=== PATIENT | male | born 1945 | race Caucasian/White ===

== ENCOUNTER 2016-02-10 16:09 | Inpatient (IN) | payer MEDICARE, OTHER ==
[~2016-02-10] VITALS: Ht 172.7 cm; Wt 94.5 kg
[~2016-02-10 16:09] MED LIST: ADDERALL20 MG PO; ALLEGRA 180MG180 MG PO; ALLEGRA ALLERG180 MG PO; ANTIVERT 25MG25 MG PO; APRESOLINE 25MG25 MG PO; APRESOLINE50 MG PO; ASPI325T6 PO; ASPIRIN 32325 MG/TAB PO; ASPIRIN E.C. 8181 MG PO; ATACAND PO; ATENOLOL100 MG PO; ATIVAN 0.50.5 MG/TAB PO; BETAPACE 120MG120 MG PO; BYETTA 10M600 MCG/SY SC; BYETTA 5MC300 MCG/SY SC; BYETTA SC; BYSTOLIC5 MG PO; CARDIZEM CD360 MG PO; CARDURA 2MG2 MG PO; CARDURA4 MG PO; CELEBREX 200MG200 MG PO; CELEBREX50 MG PO; CEPHALEXIN500 M1 PO; CLOPIDOGREL PO; CORDARONE200 MG/TAB PO; COZAAR100 MG PO; CRESTOR20 MG PO; CYMBALTA 30MG30 MG PO; CYMBALTA 60MG60 MG PO; DILTIAZEM PO; DOXYCYCLINE HY100 MG PO; ECOTRIN325 MG PO; FISH OIL CONC1000 MG PO; FLEXERIL 1010 MG/TAB PO; FLONASE NASAL S16 GM NS; FOLIC ACID 11 MG/TA1 PO; FORTAMET500 MG PO; GLUCOPHAGE XR500 M1 PO; GLUCOPHAGE500 MG/TAB PO; GLUCOTROL XL10 MG PO; GLUCOTROL10 MG PO; IMDUR 60MG60 MG/TAB PO; INSPRA; INSPRA PO; INSPRA50 MG; INSPRA50 MG PO; LANTUS100 U/ML SC; LASIX 40MG TABL40 MG PO; LASIX 40MG40 MG/4 ML PO; LOPRESSOR 225 MG/TAB PO; LORTAB 5/500 501 TAB PO; METFORMIN ER500 MG PO; MICARDIS HCT 121 TA1 PO; MULTIPLE VITAMI1 CAP PO; NEXIUM 40MG40 MG PO; NITRO-DUR0.4 MG/PAT TD; NITROSTAT0.4 MG/TAB SL; NORCO 325 MG-7.1 TAB PO; ONGLYZA5 MG PO; PERCOCET 325 MG1 TA2 PO; PLAVIX 75MG TAB75 MG PO; PRALUENT S75 MG/1 ML SQ; PREDNISONE20 MG PO; PREVACID 15MG15 M1 PO; PREVACID 30MG30 M1 PO; PREVACID 30MG30 MG PO; PREVACID SOLUTA30 M2 PO; PRILOSEC 20MG20 MG PO; PROTONIX20 MG PO; PURINETHOL 50MG50 MG PO; SENNA-LAX8.6 MG PO; SENNA8.6 MG PO; SOTALOL PO; ST. JOSEPH81 M2 PO; TAZTIA XT360 MG PO; TIAZAC300 MG PO; TIAZAC420 MG PO; Testosterone IM; VALIUM 2MG T2 MG/TAB PO; VITAMIN B1250 MCG PO; WELLBUTRIN XL150 MG PO; XARELTO10 MG PO; ZEBETA10 MG PO; ZETIA 10MG TAB10 MG PO; ZETIA10 MG PO; ZOCOR 10MG10 MG PO; ZOFRAN 4MG T4 MG/TAB PO; ZYBAN150 M1; [UNRECOGNIZED DRUG - CODE]; [UNRECOGNIZED DRUG - OTHER] PO; [UNRECOGNIZED DRUG - REMARK]
[2016-02-10 18:14] LABS: PH 6 (5-8); SQUAMOUS EPITHELIAL None Seen /hpf; URINE APPEARANCE Cloudy; URINE BACTERIA None Seen /hpf; URINE BILIRUBIN Negative (NEGATIVE); URINE BLOOD 3+ (NEGATIVE); URINE COLOR Red; URINE GLUCOSE 3+ (NEGATIVE); URINE KETONE Trace (NEGATIVE); URINE RBC >50 /hpf; URINE UROBILINOGEN Negative (NEGATIVE); URINE WBC None Seen /hpf
[2016-02-10 18:53] LABS: BASO # 0.1 (0.0-0.2); BASO % 0.6 % (0.0-2.0); EOS # 0.3 (0.0-0.7); EOS % 3.3 % (0-4.0); GRAN # 5.2 (1.4-6.5); HEMATOCRIT 39.3 % (42.0-52.0); HEMOGLOBIN 13.3 g/dl (13.5-18.0); LYMPH % 24.7 % (20.0-51.0); MEAN CELL VOLUME 94 fl (80.0-100.0); MEAN CORPUSCULAR HEMOGLOBIN 32 pg (27.0-31.0); MEAN CORPUSCULAR HGB CONC 34 g/dl (33.0-37.0); MEAN PLATELET VOLUME 10.6 fl (7.4-10.4); MONO # 0.7 (0.1-0.6); MONO % 7.9 % (1.7-9.3); PLATELET COUNT 221 K/mm3 (130-400); RED BLOOD COUNT 4.18 M/mm3 (4.20-5.60); REDCELL DISTRIBUTION WIDTH-CV 13.6 % (11.5-14.5); WHITE BLOOD COUNT 8.2 K/mm3 (4.8-10.8)
[2016-02-10 19:18] LABS: ADJUSTED CALCIUM 9.8 mg/dL (8.4-10.2); ALBUMIN 3.8 gm/dL (3.5-5.0); BILIRUBIN,TOTAL 0.6 mg/dL (0.0-1.0); CALCIUM 9.6 mg/dL (8.4-10.2); CREATININE, serum 0.83 mg/dL (0.66-1.25); POTASSIUM 3.6 mmol/L (3.4-5.0); TOTAL PROTEIN 7.1 gm/dL (6.4-8.2)
[2016-02-10 20:38] VITALS: BP 190/117; PULSE 103; TEMP 98
[2016-02-11] VITALS (13 sets, daily range): BP systolic 109–179; BP diastolic 41–107; PULSE 69–91; TEMP 97–98.3
[2016-02-11 12:24] LABS: BASO % 0.3 % (0.0-2.0); EOS % 0.5 % (0-4.0); GRAN % 80.7 % (42.2-75.2); LYMPH # 1.2 (1.2-3.4); LYMPH % 13.5 % (20.0-51.0); MEAN CELL VOLUME 96 fl (80.0-100.0); MEAN CORPUSCULAR HGB CONC 33 g/dl (33.0-37.0); MEAN PLATELET VOLUME 10.6 fl (7.4-10.4); MONO # 0.4 (0.1-0.6); MONO % 4.2 % (1.7-9.3); PLATELET COUNT 159 K/mm3 (130-400); RED BLOOD COUNT 2.38 M/mm3 (4.20-5.60); REDCELL DISTRIBUTION WIDTH-CV 13.9 % (11.5-14.5); WHITE BLOOD COUNT 8.6 K/mm3 (4.8-10.8)
[2016-02-11 12:25] LABS: HEMATOCRIT 22.9 % (42.0-52.0); HEMOGLOBIN 7.6 g/dl (13.5-18.0); MEAN CORPUSCULAR HEMOGLOBIN 32 pg (27.0-31.0)
[2016-02-11 12:33] LABS: CALCIUM 6.1 mg/dL (8.4-10.2); CREATININE, serum 0.75 mg/dL (0.66-1.25)
[2016-02-11 12:37] LABS: POTASSIUM 2.5 mmol/L (3.4-5.0)
[2016-02-11 13:25] LABS: HEMOGLOBIN 9.9 g/dl (13.5-18.0)
[2016-02-12 00:14] VITALS: BP 121/49; PULSE 68; TEMP 98.3
[2016-02-12 04:34] VITALS: BP 138/74; PULSE 67; TEMP 97.7
[2016-02-12 07:10] LABS: INR 1.1 (0.8-3.0); PROTHROMBIN TIME 12.3 SECONDS (9.7-12.8)
[2016-02-12 07:13] LABS: MEAN CELL VOLUME 96 fl (80.0-100.0); MEAN CORPUSCULAR HGB CONC 33 g/dl (33.0-37.0); MEAN PLATELET VOLUME 11.2 fl (7.4-10.4); PLATELET COUNT 206 K/mm3 (130-400); REDCELL DISTRIBUTION WIDTH-CV 13.9 % (11.5-14.5); WHITE BLOOD COUNT 12.9 K/mm3 (4.8-10.8)
[2016-02-12 07:15] LABS: HEMOGLOBIN 8.8 g/dl (13.5-18.0); MEAN CORPUSCULAR HEMOGLOBIN 31 pg (27.0-31.0)
[2016-02-12 09:21] VITALS: BP 148/68; PULSE 78; TEMP 97.3
[2016-02-12 13:13] VITALS: BP 126/50; PULSE 73; TEMP 98.9
[2016-02-12 17:16] VITALS: BP 124/56; PULSE 68; TEMP 98.1
[2016-02-12 22:16] VITALS: BP 131/61; PULSE 76; TEMP 98.2
[2016-02-13] VITALS (9 sets, daily range): BP systolic 126–170; BP diastolic 53–78; PULSE 60–87; TEMP 97.2–98.9
[2016-02-13 06:42] LABS: MEAN CELL VOLUME 95 fl (80.0-100.0); MEAN CORPUSCULAR HGB CONC 33 g/dl (33.0-37.0); MEAN PLATELET VOLUME 10.9 fl (7.4-10.4); PLATELET COUNT 186 K/mm3 (130-400); RED BLOOD COUNT 2.51 M/mm3 (4.20-5.60); REDCELL DISTRIBUTION WIDTH-CV 13.7 % (11.5-14.5); WHITE BLOOD COUNT 9.7 K/mm3 (4.8-10.8)
[2016-02-13 06:44] LABS: HEMATOCRIT 23.8 % (42.0-52.0); HEMOGLOBIN 7.8 g/dl (13.5-18.0); MEAN CORPUSCULAR HEMOGLOBIN 31 pg (27.0-31.0)
[2016-02-13 07:00] LABS: CALCIUM 8.5 mg/dL (8.4-10.2); CREATININE, serum 0.83 mg/dL (0.66-1.25); POTASSIUM 3.2 mmol/L (3.4-5.0)
[2016-02-14 02:52] VITALS: BP 154/91; PULSE 86; TEMP 98.6
[2016-02-14 04:44] VITALS: BP 167/58; PULSE 64; TEMP 97.2
[2016-02-14 07:56] LABS: MEAN CELL VOLUME 95 fl (80.0-100.0); MEAN CORPUSCULAR HGB CONC 33 g/dl (33.0-37.0); MEAN PLATELET VOLUME 11.2 fl (7.4-10.4); PLATELET COUNT 218 K/mm3 (130-400); REDCELL DISTRIBUTION WIDTH-CV 13.8 % (11.5-14.5)
[2016-02-14 08:01] LABS: HEMATOCRIT 27.6 % (42.0-52.0); HEMOGLOBIN 9.1 g/dl (13.5-18.0); MEAN CORPUSCULAR HEMOGLOBIN 31 pg (27.0-31.0)
[2016-02-14 10:39] VITALS: BP 150/69; PULSE 63; TEMP 98.4
[2016-02-14 14:53] VITALS: BP 146/84; PULSE 85; TEMP 98.3
== END 2016-02-14 15:20 | DRG 663 ==
LOC: COL.ER 16:09 → SURG 19:13
PROVIDERS: Nurse Practitioner; Urology
PROC: 0W3R8ZZ Control Bleeding in Genitourinary Tract, Via Natural or Artificial Opening Endoscopic (ICD-10-PCS; 2016-02-11)
PROC: 0T9B80Z Drainage of Bladder with Drainage Device, Via Natural or Artificial Opening Endoscopic (ICD-10-PCS; 2016-02-11)
PROC: 0TCB8ZZ Extirpation of Matter from Bladder, Via Natural or Artificial Opening Endoscopic (ICD-10-PCS; principal; 2016-02-11 09:30)
DX: N32.89 Other specified disorders of bladder (principal); F05 Delirium due to known physiological condition; D62 Acute posthemorrhagic anemia; R31.0 Gross hematuria; I10 Essential (primary) hypertension; I25.10 Atherosclerotic heart disease of native coronary artery without angina pectoris; Z95.5 Presence of coronary angioplasty implant and graft; I48.91 Unspecified atrial fibrillation; E11.9 Type 2 diabetes mellitus without complications; Z95.0 Presence of cardiac pacemaker; Z79.01 Long term (current) use of anticoagulants; E87.6 Hypokalemia
CPT/HCPCS: J0690; J1100; J1815; J2310; J2405; J2704; J3010; J7030; P9016

== ENCOUNTER → 2016-02-21 | Outpatient (REF) ==
[~2016-02-21] MED LIST changes: +ASPIRIN 81M81 MG/TA2 PO; +DUO-KAPS1 CAP PO; +EXELON PAT4.6 MG/24 TD; +FERRO-TIME325 MG PO; +LASIX 20MG TABL20 MG PO; +MUCINEX 60600 MG/TA1 PO; +NAMENDA 10MG TA10 MG PO; +NAMENDA5 MG PO; +NOVOLOG FLEX100 U/ML SQ; +PRALUENT P75 MG/1 ML SQ; +PRAVACHOL 20MG20 MG PO; +Remove Patch TD; +THIAMINE 1100 MG/TAB PO
[2016-02-21 09:21] LABS: HIV 1/2 Antibodies Non-Reactive; HIV-1p24 Antigen Non-Reactive
== END ==
LOC: ZLAB.STJ 08:50
PROVIDERS: Family Medicine
DX: Z01.89 Encounter for other specified special examinations (principal)

== ENCOUNTER 2016-04-16 14:30 | Observation (INO) | payer MEDICARE, OTHER ==
[~2016-04-16] VITALS: Ht 175.3 cm; Wt 98.5 kg
[~2016-04-16 14:30] MED LIST changes: -ASPIRIN 81M81 MG/TA2 PO; -DUO-KAPS1 CAP PO; -EXELON PAT4.6 MG/24 TD; -FERRO-TIME325 MG PO; -LASIX 20MG TABL20 MG PO; -MUCINEX 60600 MG/TA1 PO; -NAMENDA 10MG TA10 MG PO; -NAMENDA5 MG PO; -NOVOLOG FLEX100 U/ML SQ; -PRALUENT P75 MG/1 ML SQ; -PRAVACHOL 20MG20 MG PO; -Remove Patch TD; -THIAMINE 1100 MG/TAB PO
[2016-04-16 15:23] LABS: BASO # 0.1 (0.0-0.2); BASO % 0.6 % (0.0-2.0); EOS # 0.1 (0.0-0.7); EOS % 1.2 % (0-4.0); GRAN # 4.6 (1.4-6.5); GRAN % 59.1 % (42.2-75.2); HEMATOCRIT 40.3 % (42.0-52.0); HEMOGLOBIN 12.7 g/dl (13.5-18.0); LYMPH # 2.2 (1.2-3.4); LYMPH % 28.2 % (20.0-51.0); MEAN CELL VOLUME 87 fl (80.0-100.0); MEAN CORPUSCULAR HEMOGLOBIN 27 pg (27.0-31.0); MEAN CORPUSCULAR HGB CONC 32 g/dl (33.0-37.0); MEAN PLATELET VOLUME 10.4 fl (7.4-10.4); MONO # 0.8 (0.1-0.6); MONO % 10.5 % (1.7-9.3); PLATELET COUNT 306 K/mm3 (130-400); RED BLOOD COUNT 4.64 M/mm3 (4.20-5.60); REDCELL DISTRIBUTION WIDTH-CV 21.1 % (11.5-14.5); WHITE BLOOD COUNT 7.7 K/mm3 (4.8-10.8)
[2016-04-16 15:27] LABS: INR 1.1 (0.8-3.0); PROTHROMBIN TIME 12.5 SECONDS (9.7-12.8)
[2016-04-16 15:46] LABS: ADJUSTED CALCIUM 9.5 mg/dL (8.4-10.2); ALANINE AMINOTRANSFERASE 22 U/L (21-72); ALKALINE PHOSPHATASE 101 U/L (50-136); ANION GAP 15 mmol/L (7-16); BILIRUBIN,TOTAL 0.7 mg/dL (0.0-1.0); BLOOD UREA NITROGEN 15 mg/dL (9-20); CALCIUM 9.5 mg/dL (8.4-10.2); CARBON DIOXIDE 24 mmol/L (22-30); CHLORIDE 100 mmol/L (98-107); CREATININE, serum 1.17 mg/dL (0.66-1.25); GLUCOSE 192 mg/dL (74-106); POTASSIUM 4.1 mmol/L (3.4-5.0); SODIUM 139 mmol/L (137-145); TOTAL PROTEIN 7.1 gm/dL (6.4-8.2)
[2016-04-16 15:47] LABS: ACETAMINOPHEN < 10 ug/mL (10-30); SALICYLATE < 1.0 mg/dL
[2016-04-16] MEDS ORDERED: ZEBETA10 MG PO (16:51)
[2016-04-16] MEDS ORDERED: NOVOLOG FLEX100 U/ML SQ (16:58)
[2016-04-16] MEDS ORDERED: INSPRA50 MG PO (16:59)
[2016-04-16] MEDS ORDERED: NITRO-DUR0.4 MG/PAT TD (17:00)
[2016-04-16] MEDS ORDERED: PRALUENT P75 MG/1 ML SQ (17:01)
[2016-04-16] MEDS ORDERED: ALLEGRA 180MG180 MG PO (17:03)
[2016-04-16] MEDS ORDERED: PLAVIX 75MG TAB75 MG PO (17:06)
[2016-04-16] MEDS ORDERED: ASPIRIN 81M81 MG/TA2 PO (17:06)
[2016-04-16] MEDS ORDERED: FERRO-TIME325 MG PO (17:07)
[2016-04-16] MEDS ORDERED: FLONASE NASAL S16 GM NS (17:08)
[2016-04-16] MEDS ORDERED: MUCINEX 60600 MG/TA1 PO (17:08)
[2016-04-16 18:06] VITALS: BP 119/62; PULSE 63; TEMP 97.5
[2016-04-17 01:23] VITALS: BP 148/92; PULSE 67; TEMP 98
[2016-04-17 05:13] VITALS: BP 179/80; PULSE 84; TEMP 98.6
[2016-04-17 07:56] VITALS: BP 191/67; PULSE 54; TEMP 98.4
[2016-04-17 16:12] VITALS: BP 145/86; PULSE 70; TEMP 98.2
[2016-04-17 19:28] VITALS: BP 163/98; PULSE 73; TEMP 98.4
[2016-04-17 23:34] VITALS: BP 168/92; PULSE 73; TEMP 98.3
[2016-04-18 03:09] VITALS: BP 153/76; PULSE 72; TEMP 98.5
[2016-04-18 07:51] VITALS: BP 149/82; PULSE 69; TEMP 98.3
[2016-04-18 11:21] VITALS: BP 131/74; PULSE 74; TEMP 97.6
[2016-04-18] MEDS ORDERED: EXELON PAT4.6 MG/24 TD (11:28)
[2016-04-18] MEDS ORDERED: LASIX 20MG TABL20 MG PO (11:30)
[2016-04-18] MEDS ORDERED: DUO-KAPS1 CAP PO (11:31)
[2016-04-18] MEDS ORDERED: THIAMINE 1100 MG/TAB PO (11:31)
[2016-04-18] MEDS ORDERED: Remove Patch TD (11:32)
[2016-04-18] MEDS ORDERED: NAMENDA 10MG TA10 MG PO ×2 (11:38)
[2016-04-18] MEDS ORDERED: NAMENDA5 MG PO ×2 (11:38)
[2016-04-18] MEDS ORDERED: PRAVACHOL 20MG20 MG PO (12:18)
[2016-04-18 14:10] VITALS: BP 131/74; PULSE 74; TEMP 97.6
== END 2016-04-18 15:00 | disposition home or self-care (01) ==
LOC: COL.ER 14:30 → MEDICAL 17:11
PROVIDERS: Emergency Medicine; Family Medicine
DX: F03.90 Unspecified dementia, unspecified severity, without behavioral disturbance, psychotic disturbance, mood disturbance, and anxiety (principal); I25.10 Atherosclerotic heart disease of native coronary artery without angina pectoris; I11.0 Hypertensive heart disease with heart failure; I50.9 Heart failure, unspecified; E11.9 Type 2 diabetes mellitus without complications; K21.9 Gastro-esophageal reflux disease without esophagitis; M19.90 Unspecified osteoarthritis, unspecified site; K27.9 Peptic ulcer, site unspecified, unspecified as acute or chronic, without hemorrhage or perforation; E78.5 Hyperlipidemia, unspecified; G90.3 Multi-system degeneration of the autonomic nervous system; Z79.4 Long term (current) use of insulin; Z95.5 Presence of coronary angioplasty implant and graft; Z95.0 Presence of cardiac pacemaker; Z79.899 Other long term (current) drug therapy; Z79.84 Long term (current) use of oral hypoglycemic drugs; Z79.82 Long term (current) use of aspirin; Z79.02 Long term (current) use of antithrombotics/antiplatelets; Z91.81 History of falling; I25.2 Old myocardial infarction; Z87.891 Personal history of nicotine dependence; Z86.79 Personal history of other diseases of the circulatory system
CPT/HCPCS: G0378; G8987-GO; G8988-GO; J1650; J1815; J2060

== ENCOUNTER 2016-07-08 16:38 | Emergency (ER) | payer MEDICARE, OTHER ==
[~2016-07-08] VITALS: Ht 175.3 cm; Wt 72.7 kg
[~2016-07-08 16:38] MED LIST changes: +ASPIRIN 81M81 MG/TA2 PO; +DUO-KAPS1 CAP PO; +EXELON PAT4.6 MG/24 TD; +FERRO-TIME325 MG PO; +LASIX 20MG TABL20 MG PO; +MUCINEX 60600 MG/TA1 PO; +NAMENDA 10MG TA10 MG PO; +NAMENDA5 MG PO; +NOVOLOG FLEX100 U/ML SQ; +PRALUENT P75 MG/1 ML SQ; +PRAVACHOL 20MG20 MG PO; +Remove Patch TD; +THIAMINE 1100 MG/TAB PO
[2016-07-08 16:45] VITALS: TEMP 97.7
[2016-07-08 18:37] VITALS: BP 156/87; PULSE 65
== END 2016-07-08 18:41 | disposition home or self-care (01) ==
LOC: COL.ER 16:38
DX: I11.0 Hypertensive heart disease with heart failure (principal); R04.0 Epistaxis; I50.9 Heart failure, unspecified; I25.10 Atherosclerotic heart disease of native coronary artery without angina pectoris; I25.2 Old myocardial infarction; E11.9 Type 2 diabetes mellitus without complications; K21.9 Gastro-esophageal reflux disease without esophagitis; M19.90 Unspecified osteoarthritis, unspecified site; Z87.891 Personal history of nicotine dependence; Z79.4 Long term (current) use of insulin; Z79.84 Long term (current) use of oral hypoglycemic drugs; Z79.82 Long term (current) use of aspirin; Z79.01 Long term (current) use of anticoagulants; Z85.828 Personal history of other malignant neoplasm of skin; Z95.0 Presence of cardiac pacemaker; Z95.5 Presence of coronary angioplasty implant and graft; Z98.890 Other specified postprocedural states

== ENCOUNTER → 2017-04-17 | Outpatient (CLI) | payer MEDICARE, OTHER ==
[~2017-04-17] MED LIST changes: +ACULAR 3 ML3 ML OS; +ARICEPT10 MG PO; +BYETTA 10M600 MCG/SY SQ; +CATAPRES 0.1MG0.1 MG PO; +CATAPRES0.3 MG PO; +OCUFLOX OPHTH DR5 ML OD
[2017-04-17 18:23] LABS: COLLECTION METHOD CLEAN CATCH
[2017-04-17 19:01] LABS: PH 6 (5-8); SQUAMOUS EPITHELIAL None Seen /hpf; URINE APPEARANCE Clear; URINE BACTERIA None Seen /hpf; URINE BILIRUBIN Negative (NEGATIVE); URINE BLOOD Negative (NEGATIVE); URINE COLOR Yellow; URINE GLUCOSE Negative (NEGATIVE); URINE KETONE Negative (NEGATIVE); URINE LEUKOCYTE ESTERASE Negative (NEGATIVE); URINE NITRATE Negative (NEGATIVE); URINE PROTEIN(semi-quant) Negative (NEGATIVE); URINE RBC 0-2 /hpf; URINE UROBILINOGEN Negative (NEGATIVE); URINE WBC 0-2 /hpf
== END ==
LOC: ZCOL.LAB 17:23
PROVIDERS: Family Medicine
DX: Z01.89 Encounter for other specified special examinations (principal)

== ENCOUNTER → 2017-05-15 | Outpatient (CLI) | payer MEDICARE, OTHER ==
[~2017-05-15] MED LIST changes: +DIOVAN320 MG PO; +ISOSORBIDE MON120 MG PO; +MINOXIDIL 10 PO; +NORVASC 10MG10 MG PO; +NOVOLOG 100U100 U/M1 SQ
== END ==
LOC: ZCOL.LAB 12:14
DX: Z01.89 Encounter for other specified special examinations (principal)

== ENCOUNTER → 2017-05-29 | Outpatient (CLI) | payer MEDICARE, OTHER ==
[2017-05-29 12:13] LABS: CREATININE, serum 1.09 mg/dL (0.66-1.25); POTASSIUM 3.8 mmol/L (3.4-5.0)
== END ==
LOC: ZCOL.LAB 11:48
PROVIDERS: Internal Medicine Cardiovascular Disease
DX: I50.32 Chronic diastolic (congestive) heart failure (principal)

== ENCOUNTER 2017-06-16 09:22 | Emergency (ER) | payer MEDICARE, OTHER ==
[2017-06-16 09:33] VITALS: TEMP 98.3
[2017-06-16 10:12] LABS: BASO # 0.1 (0.0-0.2); BASO % 0.6 % (0.0-2.0); EOS # 0.1 (0.0-0.7); EOS % 0.9 % (0-4.0); GRAN # 5.8 (1.4-6.5); GRAN % 66.9 % (42.2-75.2); HEMATOCRIT 46.1 % (42.0-52.0); HEMOGLOBIN 15.7 g/dl (13.5-18.0); LYMPH % 23.3 % (20.0-51.0); MEAN CELL VOLUME 90 fl (80.0-100.0); MEAN CORPUSCULAR HEMOGLOBIN 31 pg (27.0-31.0); MEAN CORPUSCULAR HGB CONC 34 g/dl (33.0-37.0); MEAN PLATELET VOLUME 9.6 fl (7.4-10.4); MONO # 0.7 (0.1-0.6); PLATELET COUNT 282 K/mm3 (130-400); RED BLOOD COUNT 5.11 M/mm3 (4.20-5.60); REDCELL DISTRIBUTION WIDTH-CV 14.3 % (11.5-14.5)
[2017-06-16 10:22] LABS: ALANINE AMINOTRANSFERASE 29 U/L (21-72); ALBUMIN 4.4 gm/dL (3.5-5.0); ALKALINE PHOSPHATASE 106 U/L (50-136); ANION GAP 14 mmol/L (7-16); AST,SGOT 23 U/L (15-37); BILIRUBIN,TOTAL 0.6 mg/dL (0.0-1.0); BLOOD UREA NITROGEN 13 mg/dL (9-20); C-REACTIVE PROTEIN 0.8 mg/dL (0.0-0.9); CALCIUM 10.1 mg/dL (8.4-10.2); CARBON DIOXIDE 31 mmol/L (22-30); CHLORIDE 101 mmol/L (98-107); CREATININE, serum 1.11 mg/dL (0.66-1.25); GLUCOSE 115 mg/dL (74-106); LIPASE 166 U/L (23-300); SODIUM 146 mmol/L (137-145); TOTAL PROTEIN 8.6 gm/dL (6.4-8.2)
[2017-06-16 10:32] LABS: TROPONIN-I < 0.012 ng/mL (0.000-0.034)
[2017-06-16 11:31] LABS: COLLECTION METHOD CLEAN CATCH
[2017-06-16 11:36] LABS: MUCOUS Present /lpf; PH 5 (5-8); SQUAMOUS EPITHELIAL None Seen /hpf; URINE APPEARANCE Clear; URINE BACTERIA None Seen /hpf; URINE BILIRUBIN Negative (NEGATIVE); URINE BLOOD Negative (NEGATIVE); URINE COLOR Yellow; URINE GLUCOSE Negative (NEGATIVE); URINE KETONE Negative (NEGATIVE); URINE LEUKOCYTE ESTERASE Negative (NEGATIVE); URINE NITRATE Negative (NEGATIVE); URINE PROTEIN(semi-quant) Negative (NEGATIVE); URINE RBC 0-2 /hpf; URINE UROBILINOGEN Negative (NEGATIVE)
[2017-06-16 14:35] VITALS: BP 131/74; PULSE 62
== END 2017-06-16 14:35 | disposition home or self-care (01) ==
LOC: COL.ER 09:22
PROVIDERS: Emergency Medicine
DX: I10 Essential (primary) hypertension (principal); R11.2 Nausea with vomiting, unspecified; R53.1 Weakness; E11.9 Type 2 diabetes mellitus without complications; I25.10 Atherosclerotic heart disease of native coronary artery without angina pectoris; F03.90 Unspecified dementia, unspecified severity, without behavioral disturbance, psychotic disturbance, mood disturbance, and anxiety; Z95.5 Presence of coronary angioplasty implant and graft; Z79.4 Long term (current) use of insulin; Z79.02 Long term (current) use of antithrombotics/antiplatelets; Z79.82 Long term (current) use of aspirin; Z79.51 Long term (current) use of inhaled steroids
CPT/HCPCS: J2405

== ENCOUNTER → 2017-07-24 | Outpatient (CLI) | payer MEDICARE, OTHER | LOC: ZCOL.LAB 14:32 | DX: E11.9 Type 2 diabetes mellitus without complications (principal) ==

== ENCOUNTER → 2017-11-12 | Outpatient (CLI) | payer MEDICARE, OTHER ==
[2017-11-12 12:25] LABS: BASO # 0.1 (0.0-0.2); BASO % 0.8 % (0.0-2.0); EOS # 0.2 (0.0-0.7); EOS % 2.5 % (0-4.0); GRAN # 4.3 (1.4-6.5); GRAN % 59.5 % (42.2-75.2); LYMPH % 27.7 % (20.0-51.0); MEAN CELL VOLUME 90 fl (80.0-100.0); MEAN CORPUSCULAR HEMOGLOBIN 30 pg (27.0-31.0); MEAN CORPUSCULAR HGB CONC 33 g/dl (33.0-37.0); MEAN PLATELET VOLUME 10.3 fl (7.4-10.4); MONO # 0.7 (0.1-0.6); MONO % 9.2 % (1.7-9.3); PLATELET COUNT 196 K/mm3 (130-400); RED BLOOD COUNT 4.02 M/mm3 (4.20-5.60); REDCELL DISTRIBUTION WIDTH-CV 14.7 % (11.5-14.5)
[2017-11-12 12:38] LABS: ALBUMIN 3.2 gm/dL (3.5-5.0); BILIRUBIN,TOTAL 0.3 mg/dL (0.0-1.0); CALCIUM 8.9 mg/dL (8.4-10.2); CHOLESTEROL RISK RATIO 3.5; CREATININE, serum 1.07 mg/dL (0.66-1.25); POTASSIUM 3.8 mmol/L (3.4-5.0); TOTAL PROTEIN 5.8 gm/dL (6.4-8.2)
[2017-11-12 23:33] LABS: HEPATITIS C VIRUS ANTIBODY Negative (Negative)
== END ==
LOC: ZCOL.LAB 12:09
PROVIDERS: Family Medicine
DX: I50.32 Chronic diastolic (congestive) heart failure (principal); N30.40 Irradiation cystitis without hematuria; E11.9 Type 2 diabetes mellitus without complications; E78.5 Hyperlipidemia, unspecified; R60.9 Edema, unspecified